=== PATIENT | male | born 1945 | race Caucasian/White ===

== ENCOUNTER 2018-05-03 10:11 | Day surgery (SDC) | payer MEDICARE, OTHER ==
[~2018-05-03] VITALS: Ht 175.3 cm; Wt 105.0 kg
[~2018-05-03 10:11] MED LIST: CLARITIN10 MG PO; PRILOSEC 20MG20 MG PO
[2018-05-03 10:34] VITALS: BP 129/86; PULSE 82; TEMP 97.2
[2018-05-03] MEDS ORDERED: PRILOSEC 20MG20 MG PO (10:44)
[2018-05-03] MEDS ORDERED: PROSCAR 5MG5 MG PO (10:44)
[2018-05-03 14:49] VITALS: TEMP 97.3
[2018-05-03 15:13] VITALS: BP 128/77; PULSE 77
[2018-05-03] MEDS ORDERED: NORCO 325 MG-51 TAB PO (15:21)
[2018-05-03 15:28] VITALS: BP 125/75; PULSE 76
[2018-05-03 15:43] VITALS: BP 119/77; PULSE 75
[2018-05-03 15:58] VITALS: BP 126/70; PULSE 81
== END 2018-05-03 16:45 | disposition home or self-care (01) ==
LOC: SDCO 10:11
DX: K40.90 Unilateral inguinal hernia, without obstruction or gangrene, not specified as recurrent (principal); K44.9 Diaphragmatic hernia without obstruction or gangrene; K21.9 Gastro-esophageal reflux disease without esophagitis; N40.0 Benign prostatic hyperplasia without lower urinary tract symptoms; Z87.891 Personal history of nicotine dependence
CPT/HCPCS: A4314; C1781; J0690; J1100; J1885; J2405; J2704; J7120

== ENCOUNTER 2020-11-01 16:11 | Emergency (ER) | payer MEDICARE, OTHER ==
[~2020-11-01] VITALS: Ht 172.7 cm; Wt 95.0 kg
[~2020-11-01 16:11] MED LIST changes: +NORCO 325 MG-51 TAB PO; +PROSCAR 5MG5 MG PO
[2020-11-01 17:06] LABS: HEMATOCRIT 43.6 % (42.0-52.0); MEAN CELL VOLUME 84 fl (80.0-100.0); MEAN CORPUSCULAR HEMOGLOBIN 29 pg (27.0-31.0); MEAN CORPUSCULAR HGB CONC 34 g/dl (33.0-37.0); MEAN PLATELET VOLUME 10.2 fl (7.4-10.4); PLATELET COUNT 165 K/mm3 (130-400); RED BLOOD COUNT 5.21 M/mm3 (4.20-5.60); REDCELL DISTRIBUTION WIDTH-CV 12.9 % (11.5-14.5)
[2020-11-01 17:17] LABS: ALANINE AMINOTRANSFERASE 24 U/L (4-49); ALBUMIN 3.6 gm/dL (3.5-5.0); ALKALINE PHOSPHATASE 82 U/L (50-136); ANION GAP 9 mmol/L (7-16); AST,SGOT 33 U/L (15-37); BILIRUBIN,TOTAL 1.6 mg/dL (0.0-1.0); BLOOD UREA NITROGEN 11 mg/dL (9-20); CALCIUM 8.1 mg/dL (8.4-10.2); CARBON DIOXIDE 26 mmol/L (22-30); CHLORIDE 95 mmol/L (98-107); CREATININE, serum 0.77 (0.66-1.25); GLUCOSE 119 mg/dL (74-106); POTASSIUM 3.4 mmol/L (3.4-5.0); SODIUM 131 mmol/L (137-145); TOTAL PROTEIN 6.7 gm/dL (6.4-8.2)
[2020-11-01 17:35] LABS: BAND 1 % (0-10); LYMPHOCYTE 7 % (20.0-51.0); NEUTROPHILS 83 % (42.0-75.2); PLATELET ESTIMATE NORMAL (NORMAL); TROPONIN-I < 0.012 ng/mL (0.000-0.035)
[2020-11-01 17:44] VITALS: BP 115/99; PULSE 99; TEMP 99.2
== END 2020-11-01 17:55 | disposition home or self-care (01) ==
LOC: COL.ER 16:11
PROVIDERS: Emergency Medicine
DX: U07.1 COVID-19 (principal); Z85.828 Personal history of other malignant neoplasm of skin; Z87.891 Personal history of nicotine dependence; Z88.0 Allergy status to penicillin; Z88.8 Allergy status to other drugs, medicaments and biological substances
CPT/HCPCS: J7030

== ENCOUNTER 2021-11-15 10:22 | Emergency (ER) | payer MEDICARE, OTHER ==
[~2021-11-15] VITALS: Ht 175.3 cm; Wt 97.3 kg
[2021-11-15 11:41] LABS: BASO % 0.5 % (0.0-2.0); EOS # 0.1 K/mm3 (0.0-0.7); EOS % 0.8 % (0.0-4.0); GRAN % 80.2 % (42.2-75.2); HEMATOCRIT 49.1 % (42.0-52.0); HEMOGLOBIN 16.7 g/dl (13.5-18.0); LYMPH # 0.6 K/mm3 (1.2-3.4); LYMPH % 9.1 % (20.0-51.0); MEAN CELL VOLUME 86 fl (80.0-100.0); MEAN CORPUSCULAR HEMOGLOBIN 29 pg (27-31); MEAN CORPUSCULAR HGB CONC 34 g/dl (33.0-37.0); MONO # 0.6 K/mm3 (0.1-0.6); MONO % 8.9 % (1.7-9.3); PLATELET COUNT 188 K/mm3 (130-400); RED BLOOD COUNT 5.74 M/mm3 (4.20-5.60); REDCELL DISTRIBUTION WIDTH-CV 13.3 % (11.5-14.5)
[2021-11-15 11:56] LABS: ALBUMIN 3.9 gm/dL (3.4-4.8); BILIRUBIN,TOTAL 1.4 mg/dL (0.2-1.2); CREATININE, serum 0.95 mg/dL (0.72-1.25); TOTAL PROTEIN 6.9 gm/dL (6.2-8.1)
[2021-11-15] MEDS ORDERED: ANTIVERT 25MG25 MG PO (13:49)
[2021-11-15 14:00] VITALS: BP 122/87; PULSE 81; TEMP 97.9
== END 2021-11-15 14:10 | disposition home or self-care (01) ==
LOC: COL.ER 10:22
PROVIDERS: Student in an Organized Health Care Education/Training Program
DX: H81.10 Benign paroxysmal vertigo, unspecified ear (principal); Z87.891 Personal history of nicotine dependence
CPT/HCPCS: J7030